=== PATIENT | male | born 1960 | race Caucasian/White ===

== ENCOUNTER 2017-04-18 10:38 | Outpatient (CLI) | payer BC ==
[2017-04-18] MEDS ORDERED: ENALAPRIL-HCTZ1 EACH ORAL (11:56)
[2017-04-18] MEDS ORDERED: HYDROCHLOROTH12.5 MG ORAL (11:56)
[2017-04-18] MEDS ORDERED: PENTOXIFYLLINE MC (11:56)
[2017-04-18] MEDS ORDERED: PENTASA500 MG ORAL (11:56)
--- NOTE | 2017-04-18 11:58 | GI Initial Consult Note ---
History of Present Illness General Date patient seen: April 18, 2017 Time patient seen: 11:51 Referring physician: HORTENSIA Reason for Consultation: [facility] MGMT Present Illness HPI 56 year old male referred by Dr. Munguia for management of Crohn's. Pt presents today with no c/o of any GI symptoms. States all his records can be obtained at [facility]. Denies any extreme unintentional weight loss int he past month. The patients last colonoscopy was performed approximately 1 year ago, limited findings due to poor prep. Home Meds Reported Medications Hydrochlorothiazide* (HYDROCHLOROTHIAZIDE*) 12.5 Mg Tablet, 12.5 MG ORAL DAILY, TAB 04/18/17 Pentoxifylline (PENTOXIFYLLINE) 100 Gm Powder, 200 GM MC, GM 04/18/17 Enalapril/Hydrochlorothiazide (ENALAPRIL-HCTZ 10-25 MG TABLET) 1 Each Tablet, 1 TAB ORAL DAILY, TAB 04/18/17 Mesalamine (PENTASA) 500 Mg Capsule.er, 500 MG ORAL DAILY, #30 CAP 0 Refills 04/18/17 Med list reviewed/reconciled: Yes Allergies: Coded Allergies: No Known Allergies (Unverified , 04/18/17) Patient History PMH Narrative HTN Crohns PUD PSHx bowel resection ~ 1995 polypectomy tonsillectomy gastric ulcers cholecystectomy hernia repair Family History Narrative Mom - Crohns. Leukemia. DM. HTN. Social History: Reports: other - coffee daily, Denies: alcohol use, drug use, smoking Review of Systems All Other Systems: negative except mentioned in HPI Physical Exam T 98.1 BP 151/58 P 63 92 RA WT 238.8 lbs (-4 lbs in past month) HT 5'10 Sp02 EP Interpretation: reviewed General Appearance: normal inspection, well appearing, no apparent distress, obese Head: normocephalic EENT: normal ENT inspection Neck: supple Respiratory: normal breath sounds, no respiratory distress Cardiovascular: normal rate Gastrointestinal: normal inspection, non tender, soft, normal bowel sounds Rectal: deferred Genitourinary: no CVA tenderness Musculoskeletal: back normal Neurologic: normal inspection, alert, oriented x3, responsive Psychiatric: normal inspection, judgement/insight normal, memory normal Skin: normal inspection, normal color, no rash, warm/dry Lymphatic: normal inspection, no adenopathy GI: Plan Problems: (1) History of bowel resection (2) Hx of colonic polyps (3) Crohns disease (4) H/O hernia repair (5) Peptic ulcer disease (6) Hx of cholecystectomy (7) Colonoscopy planned Plan hx of prednisone use s/p colonoscopy last year >> limited due to poor prep dc pentoxyphyline cont pentasa pt will require repeat colonoscopy >> pt to contact office for scheduling [facility] for future evaluation of extent of Crohns RTC x [address] Guillory. Thank you for referring this patient. Mily Mcbride N.P. April 18, 2017 11:58
[2017-04-18 12:45] VITALS: BP 151/58
== END 2017-04-18 11:15 | disposition home or self-care (01) ==
LOC: PAN 10:38
DX: K50.90 Crohn's disease, unspecified, without complications (principal); Z86.010 Personal history of colon polyps; K27.9 Peptic ulcer, site unspecified, unspecified as acute or chronic, without hemorrhage or perforation; Z90.49 Acquired absence of other specified parts of digestive tract; I10 Essential (primary) hypertension; Z83.3 Family history of diabetes mellitus; Z82.49 Family history of ischemic heart disease and other diseases of the circulatory system; Z80.6 Family history of leukemia
CPT/HCPCS: 99201